=== PATIENT | male | born 1960 | race Caucasian/White ===

== ENCOUNTER → 2018-07-15 | Outpatient (CLI) | payer OTHER ==
[~2018-07-15] MED LIST: BACTROBAN CREAM30 G1 TOP; FISH OIL 1,001000 M2 PO; HYDROCHLOROTH12.5 M1 PO; LISINOPRIL20 MG PO; MAGNESIUM400 MG PO; MEROPENEM1 GM IV; METFORMIN HCL500 MG PO; PRAVACHOL20 MG PO; UNICOMPLEX M TA1 TA1 PO; VANCOMYCIN HCL 11 G2 IV; VITAMIN D1000 UNI1 PO
== END ==
LOC: CAT 08:14
DX: Z13.6 Encounter for screening for cardiovascular disorders (principal); E78.00 Pure hypercholesterolemia, unspecified; Z82.49 Family history of ischemic heart disease and other diseases of the circulatory system

== ENCOUNTER → 2019-04-22 | Outpatient (CLI) | payer BC | LOC: MRI 14:19 | DX: M51.37 Other intervertebral disc degeneration, lumbosacral region (principal); M51.36 Other intervertebral disc degeneration, lumbar region; M47.817 Spondylosis without myelopathy or radiculopathy, lumbosacral region; M51.26 Other intervertebral disc displacement, lumbar region; M12.88 Other specific arthropathies, not elsewhere classified, other specified site; M48.061 Spinal stenosis, lumbar region without neurogenic claudication; M51.27 Other intervertebral disc displacement, lumbosacral region ==

== ENCOUNTER → 2020-07-05 | Outpatient (CLI) | payer BC ==
[~2020-07-05] MED LIST changes: +AMOX TR-K CLV1 EAC4 PO; +AZELASTINE137 MCG/0. INH; +FENOFIBRIC ACI135 MG PO; +HYDROCODON-ACE1 EAC8 PO; +LISINOPRIL-HCT1 EAC1 PO; +VITAMIN D3 COM1 EACH PO
== END ==
LOC: LAB 08:04
PROVIDERS: ATTEND Otolaryngology Plastic Surgery within the Head & Neck
DX: Z01.812 Encounter for preprocedural laboratory examination (principal); Z20.828 Contact with and (suspected) exposure to other viral communicable diseases